=== PATIENT | female | born 1985 | race Two or more races ===

== ENCOUNTER 2025-03-28 00:28 | Emergency (ER) | payer BC ==
[~2025-03-28] VITALS: Ht 165.1 cm; Wt 72.6 kg
[2025-03-28] MEDS ORDERED: LIDOCAINE HCL 1% 10ML VIAL ONE (01:51)
[2025-03-28] MEDS ORDERED: CLINDAMYCIN PHOSPHATE 150 MG/ML (300mg) ONE (02:21)
[2025-03-28] MEDS ORDERED: CLINDAMYCIN PHOSPHATE 150 MG/ML (600mg) IM STA (02:23)
== END 2025-03-28 02:33 | disposition home or self-care (01) ==
LOC: ER 00:28
DX: S01.81XA Laceration without foreign body of other part of head, initial encounter (principal); W19.XXXA Unspecified fall, initial encounter; Y93.89 Activity, other specified; Y92.89 Other specified places as the place of occurrence of the external cause; Y99.8 Other external cause status; Z88.6 Allergy status to analgesic agent